=== PATIENT | female | born 2000 | race Caucasian/White ===

== ENCOUNTER 2019-07-21 07:32 | Day surgery (SDC) | payer OTHER ==
[~2019-07-21] VITALS: Ht 177.8 cm; Wt 94.9 kg
[2019-07-21] MEDS ORDERED: NORCO 325 MG-51 TAB PO (08:17)
[2019-07-21 08:18] VITALS: BP 140/74; PULSE 14; TEMP 98.3
--- NOTE | 2019-07-21 08:29 | NUR ---
TO RM RM AT 0753- CALL LIGHT IN REACH MOTHER AT BEDSIDE.
--- NOTE | 2019-07-21 08:59 | NUR ---
C/O INCREASED PAIN 03/09- RECEIVED MORPHINE 2MG PER C. 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
--- NOTE | 2019-07-21 09:16 | NUR ---
PATIENT RESTING QUIETLY AND STATED PAIN 2/10.
--- NOTE | 2019-07-21 11:01 | NUR ---
PATIENT SLEEPING QUIETLY
[2019-07-21 13:15] VITALS: BP 124/72; PULSE 70; TEMP 98.4
--- NOTE | 2019-07-21 13:15 | NUR ---
TO RM 5 PER CART FROM PACU. ALERT ORIENTED X3, TALKING TO STAFF AND MOTHER. EATING ICE CHIPS. DENIES PAIN OR DISCOMFORT. DENIES N/V.
[2019-07-21 13:30] VITALS: BP 133/79; PULSE 62
--- NOTE | 2019-07-21 13:30 | NUR ---
RECEIVED SPRITE PATIENT TEXTING ON HER PHONE.
[2019-07-21 13:45] VITALS: BP 130/79; PULSE 66
--- NOTE | 2019-07-21 13:45 | NUR ---
RECEIVED MARCUS. PUNÉSTORING
[2019-07-21 14:00] VITALS: BP 129/74; PULSE 65
--- NOTE | 2019-07-21 14:00 | NUR ---
RECEIVED DISCHARGE INSTRUCTIONS AND VERBALIZED UNDERSTANDING. IV DISCONTINUED UPON ARRIVAL TO
--- NOTE | 2019-07-21 14:15 | NUR ---
DISCHARGED PER WC BY NURSING STAFF TO PRIVATE CAR IN CARE OF MOTHER CHRISTA.
== END 2019-07-21 14:35 | disposition home or self-care (01) ==
LOC: SDCO 07:32
DX: N20.1 Calculus of ureter (principal); F41.9 Anxiety disorder, unspecified; Z79.899 Other long term (current) drug therapy
CPT/HCPCS: C1769; J2270; J2704; J3010; J7030; Q9967